=== PATIENT | male | born 1970 | race Caucasian/White ===

== ENCOUNTER 2019-09-18 12:05 | Outpatient (CLI) | payer OTHER, SELFPAY ==
--- NOTE | ~2019-09-18 | XR_ITS ---
EXAMINATION: XR cervical spine 4-5V EXAM DATE: 09/18/2019 12:51 INDICATION: C3 fracture. Neck pain. TECHNIQUE: Cervical spine frontal, lateral, lateral swimmers, and open-mouth odontoid projections. C omparison is made to prior examination from 01/18/2004. FINDINGS: There is moderate loss of the C5-6 and 6-7 disc heights. The vertebral bodies are aligned in the AP dimension. There is mild cervical arthropathy. The odontoid process is intact. The lateral masses of C1 line up with C2. There are no acute fractures identified. Prevertebral soft tissue and pre-dens space are within normal limits. IMPRESSION: 1. Moderate C5-7 disc disease. 2. Mild arthropathy. Reviewed, dictated and finalized at location A. LLOFACIAL PROSTHODONTIST
== END 2019-09-18 12:06 | disposition home or self-care (01) ==
LOC: ANHIMG 12:14
PROVIDERS: PCP Family Medicine; Visit Provider Family Medicine
DX: M50.322 Other cervical disc degeneration at C5-C6 level (principal); M50.323 Other cervical disc degeneration at C6-C7 level
CPT/HCPCS: 72050

== ENCOUNTER 2020-04-15 15:57 | Inpatient (IN) | payer OTHER, SELFPAY ==
[2020-04-15] VITALS (7 sets, daily range): BP systolic 107–180; BP diastolic 60–90; PULSE 83–95; RESP 16–22; TEMP 36.3–36.7; O2SAT 94–100; BMI 52.7
--- NOTE | ~2020-04-15 | US_ITS ---
EXAMINATION: US paracentesis abd w/image DATE: 04/18/2020 10:30 INDICATION: Ascites. TECHNIQUE: The procedure and its risks, benefits, and alternatives were discussed with the patient. P otential risks discussed included bleeding and infection. The skin was prepped and draped in sterile fashion. 1% lidocaine was used for local anesthesia. Under ultrasound guidance, a 5 Fr catheter with trochar was advanced into the ascites in the left lower quadrant. Fluid was aspirated. The catheter w as removed, and a dressing was applied. There were no immediate complications. FINDINGS: Ultrasound images demonstrate ascites and the catheter within the fluid. IMPRESSION: 1. Successful ultrasound-guided paracentesis yielding 5000 mL of dark red, opaque fluid. Reviewed, dictated and finalized at location A. IMPRESSION: 1. Successful ultrasound-guided paracentesis yielding 5000 mL of dark red, opa que fluid.
--- NOTE | ~2020-04-15 | US_ITS ---
US paracentesis abd w/image DATE: 04/15/2020 19:06 INDICATION: Ascites TECHNIQUE: The purpose of the procedure, technique and potential locations were discussed with the romina goddard. The patient verbalized understanding and gave consent. Timeout procedure confirmed proper patient and procedure. Sonographic imaging was utilized to find an appropriate site for percutaneous access at the left lowe r quadrant of the abdomen. The skin was prepared with sterile solution and sterile drape. 1% Lidoca ine was administered to the skin and underlying subcutaneous tissues. A single stick percutaneous catheter was advanced into the peritoneal catheter uneventfully. Dark red ascites was obtained. The drainage was stopped temporarily pending review of prior paracent esis reports that also revealed bloody ascites, as well as telephone conference with ER physician Dr. Gaming. The CT abdomen pelvis was reviewed as well to confirm ascites density of 16 to 19 H.U. 4.1 liters fluid was drained without apparent difficulty or complication. I advised Dr. Gaming to consider monitoring of vital signs for an appropriate period post-procedur e. IMPRESSION: 4.1 liters dark red ascites drained by ultrasound guided paracentesis Reviewed, dictated and finalized at Location A. Reviewed, dictated and finalized at location A. IMPRESSION: 4.1 liters dark red ascites drained by ultrasound guided paracentes is
--- NOTE | ~2020-04-15 | US_ITS ---
EXAMINATION: US abdomen limited DATE: 04/17/2020 15:08 INDICATION: Ascites. TECHNIQUE: Multiple grayscale ultrasound images of the abdomen were obtained. COMPARISON: Ultrasound 04/15/2020, CT abdomen and pelvis 04/15/2020 FINDINGS: A survey of the abdomen demonstrates a large volume of ascites. IMPRESSION: 1. Large volume of ascites. Reviewed, dictated and finalized at location A. IMPRESSION: 1. Large volume of ascites.
--- NOTE | ~2020-04-15 | XR_ITS ---
XR chest 1V portable DATE: 04/15/2020 21:51 INDICATION: Shortness of breath. History of COPD, smoking TECHNIQUE: 2 portable upright AP views on 04/15/2020 at 2142 hours COMPARISON: 02/25/2019 PA and lateral chest FINDINGS: Heart size appears within normal range. No pulmonary infiltrate or consolidation, pleural e ffusion or pulmonary vascular congestion or pneumothorax is detected. IMPRESSION: No active cardiopulmonary disease Reviewed, dictated and finalized at location A.
--- NOTE | ~2020-04-15 | CT_ITS ---
EXAMINATION: CT abdomen pelvis w con DATE: 04/15/2020 17:12 INDICATION: Abdominal pain and distention TECHNIQUE: Computed tomography (CT) of the abdomen and pelvis was performed with 100 cc Omnipaque 350 intravenous contrast. Automated exposure control and iterative reconstruction technique were employe d. Exam dose: 1875.30 mGy-cm total exam DLP. COMPARISON: 10/27/2018 CT abdomen 11/26/2008 CT renal scan FINDINGS: Bilateral gynecomastia. Heart size is normal. Coronary artery calcifications. No pericardial or pleural effusion. Old rib fractures. Mild atelectasis or discoid scarring in the lower lungs. Surface nodularity of the liver consistent with cirrhosis. Splenomegaly; the spleen measures approxim ately 17.4 cm length. There are some left lateral splenic capsular calcifications. There are varices . There is a prominent amount of ascites with attenuation of the 16-19 Hounsfield unit range approxim ately.. No apparent focal hepatic space-occupying mass lesion is evident. No pancreatic mass lesion or calcif ication or pancreatic duct dilatation. The gallbladder is present. No bile duct dilatation. Approximately 2.4 x 2.9 cm right adrenal mass with some internal calcifications; this is stable in si ze since 10/27/2018. The adrenal glands are otherwise unremarkable. No renal mass lesion or urinary tr act calculus or hydroureteronephrosis is evident. Normal caliber and atherosclerotic calcification of the abdominal aorta and iliac arteries. There is an approximately 5.5 cm soft tissue mass with calcifications in the right pelvic area, which appears stable in size since 10/27/2018 but new since 11/26/2008. Differential diagnosis includes phe ochromocytoma, mucinous colon tumor or other primary or metastatic malignancy. Consider PET/CT scan for further evaluation. IMPRESSION: 5.5 cm soft tissue mass with calcifications in the right pelvic area, which appears stab le in size since 10/27/2018 but new since 11/26/2008. Differential diagnosis includes pheochromocytoma , mucinous colon tumor or other primary or metastatic malignancy. Consider PET/CT scan for further e valuation Stable 2.4 x 2.9 cm right adrenal soft tissue mass with calcifications Prominent ascites Cirrhosis, splenomegaly, varices Reviewed, dictated and finalized at Location A. Reviewed, dictated and finalized at location A. IMPRESSION: 5.5 cm soft tissue mass with calcifications in the right pelvic ar ea, which appears stable in size since 10/27/2018 but new since 11/26/2008. Diff erential diagnosis includes pheochromocytoma, mucinous colon tumor or other ludwin jenniffer or metastatic malignancy. Consider PET/CT scan for further evaluation Stable 2.4 x 2.9 cm right adrenal soft tissue mass with calcifications Prominent ascites Cirrhosis, splenomegaly, varices
--- NOTE | 2020-04-15 16:00 | ED.ABDPAIN ---
HPI - Abdominal Pain General Chief Complaint: Abdominal Pain Stated Complaint: abd pain Time Seen by Provider: 04/15/20 16:00 History of Present Illness HPI narrative: History limited by poor historian. 50 yo morbidly obese male with multiple medical problems including cirrhosis, DM, HTn presents to the ED c/o abdominal pain. He reports that he has chronic pain that has gotten worse over the past few day. It is located throughout the entire abdomen. It is associated with distension and nausea. He has required parcentesis and had peritonitis in the past. He had a recent admission to [facility] for similar complaints. He is not able to provide very much detail about that hospital stay. Related Data Home Medications Medication Instructions Recorded Confirmed carvedilol 6.25 mg PO BID 04/15/20 04/15/20 ciprofloxacin HCl 500 mg PO DAILY 04/15/20 04/15/20 folic acid 0.8 mg PO DAILY 04/15/20 04/15/20 gabapentin 600 mg PO DAILY 04/15/20 04/15/20 lactulose 20 g PO BID 04/15/20 04/15/20 trazodone 100 mg PO HS PRN 04/15/20 04/15/20 Allergies Allergy/AdvReac Type Severity Reaction Status Date / Time No Known Allergies Allergy Verified 02/25/19 14:19 Review of Systems Review of Systems: All systems reviewed & are unremarkable except as noted in HPI and below Constitutional: Constitutional: Denies fever(s) ENT: Denies dizziness Cardiovascular: Cardiovascular: Denies chest pain Respiratory: Respiratory: Reports dyspnea Gastrointestinal: Gastrointestinal: Reports abdominal pain, Reports bloating, Reports diarrhea and Reports nausea Genitourinary: Genitourinary: Denies hematuria and Denies dysuria Endocrine: Endocrine: Reports fatigue PMFSH Past Medical History Medical History Diabetes mellitus HCV (hepatitis C virus) History of thrombosis HTN (hypertension) with goal to be determined Surgical History Surgical History History of left knee replacement Family History Family History Father Diabetes mellitus Leukemia Other Diabetes mellitus Social History Social History Smoking packs per day: 1 Smoking cigarettes per day: 20.0 Years smoked: 30 Smoking pack-years: 30.00 Smoking status: Current every day smoker Alcohol intake: former Alcohol use details: Former alcoholic. Gender identity (if verbalized by the patient): Male Exam Const: General: no acute distress, alert and ill appearing chronically Nutritional Appearance: obese morbidly obese Orientation/consciousness: patient oriented x3 HENMT: Head: normal to inspection Resp: Effort & Inspection: normal respiratory effort Auscultation: clear to auscultation bilaterally Cardio: Rate: regular rate Rhythm: regular rhythm GI: Inspection: distended GI Palp: Yes Tenderness to palpation present (GI), No Guarding due to palpation present (GI) and No Rebound tenderness present Percussion: Yes dullness to percussion and Yes Fluid wave present Skin: General skin exam: normal color Neuro: General: patient oriented x3, moves all extremities, no focal motor deficits and CN's II-XI intact bilaterally Speech: normal speech Extrem: General: edema bilateral Course Vital Signs Vital signs: Vital Signs Temperature 36.3 C L 04/15/20 16:02 Pulse Rate 95 04/15/20 16:02 Respiratory Rate 18 04/15/20 16:02 Blood Pressure 180/90 H 04/15/20 16:02 Pulse Oximetry 99 04/15/20 16:02 Temperature 35.7 C L 04/18/20 14:00 Pulse Rate 74 04/18/20 14:00 Respiratory Rate 18 04/18/20 14:00 Blood Pressure 119/60 04/18/20 14:00 Pulse Oximetry 97 04/18/20 14:00 MDM - Abdominal Pain MDM Narrative Medical decision making narrative: He had a large volume of ascites with abdominal pain. Given the history of p
[2020-04-15 16:17] LABS: Basophils Absolute Auto 0.1 K/mm3 (0.0-0.1); Basophils Percent Auto 0.5 % (0.2-1.2); Eosinophils Absolute Auto 0.1 K/mm3 (0-0.3); Hematocrit 30.7 % (42.0-52.0); Immature Granulocyte Absolute 0.07 K/mm3 (0.00-0.031); Immature Granulocyte Percent A 0.7 % (0-0.5); Lymphocytes Absolute Auto 0.49 K/mm3 (0.9-3.2); Lymphocytes Percent Auto 4.8 % (18.3-44.2); Mean Corpuscular HGB Conc 32.6 g/dl (32-36); Mean Corpuscular Hemoglobin 33.4 pg (26-34); Mean Corpuscular Volume 102.7 fl (80-100); Mean Platelet Volume 10.2 fl (7.4-10.4); Monocytes Percent Auto 9.4 % (2.6-8.5); Neutrophils Absolute Auto 8.5 K/mm3 (1.3-6.7); Neutrophils Percent Auto 83.6 % (45.5-73.1); Platelet Count Result 156 k/mm3 (150-375); Red Blood Count 2.99 M/mm3 (4.6-6.20); Red Cell Distribution Width 15.9 % (11.5-14.5); White Blood Count 10.2 K/mm3 (4.5-10.0)
--- NOTE | 2020-04-15 16:30 | PC.NURSE ---
PT INFORMED OF NEED FOR UA, REFUSING CATH, ASKING FOR WATER, PT INFORMED HE CANNOT HAVE ANY FLUIDS UNTIL HIS RESULTS COME BACK. STATES HE WILL ATTEMPT IN A BIT.
[2020-04-15 16:31] LABS: Alanine Aminotransferase 17 U/L (4-50); Albumin Level 3.8 g/dL (3.5-5.1); Alkaline Phosphatase 72 U/L (38-126); Anion Gap 3 mmol/L (8-16); Aspartate Amino Transferase 21 U/L (17-59); Bilirubin,Total 0.8 mg/dL (0.2-1.3); Blood Urea Nitrogen 21 mg/dL (9-20); Calcium 8.5 mg/dL (8.4-10.2); Carbon Dioxide 32 mmol/L (22-30); Chloride 95 mmol/L (98-107); Estimated CRCL calculation 98 ml/min; Estimated Glomerular Filt Rate 54; Glucose 172 mg/dL (75-110); Lipase 150 U/L (23-300); Potassium 4.4 mmol/L (3.4-5.0); Sodium 130 mmol/L (137-145)
--- NOTE | 2020-04-15 16:45 | PC.NURSE ---
PT UNABLE TO GIVE UA AT THIS TIME, REFUSING CATH.
[2020-04-15] MEDS: MORPHINE SULFATE 4 MG/ML INJ IV PUSH ×2 (17:02→21:09)
--- NOTE | 2020-04-15 17:02 | PC.NURSE ---
PT TAKEN TO CT AT THIS TIME, AGAIN INFORMED OF NEED FOR URINE SAMPLE, STATES HE WILL ATTEMPT UPON RETURN.
--- NOTE | 2020-04-15 17:44 | PC.NURSE ---
SPOKE WITH JAVIER IN THE LAB ABOUT ADDING ON COAG STUDIES, VERBALIZED THAT SHE WOULD ADD THEM ON.
--- NOTE | 2020-04-15 17:44 | PC.NURSE ---
SPOKE WITH ULTRASOUND AT THIS TIME, STATES THEY ARE AWAITING COAG STUDIES TO COME BACK PRIOR TO TAKING PT FOR PARACENTESIS.
[2020-04-15 17:50] LABS: Add Urine Microscopic? NO; Appearance Urine Clear (Clear); Bilirubin Urine Negative (Negative); Blood Urine Negative (Negative); Color Urine Yellow (Yellow); Glucose Urine UA Negative (Negative); Ketones Urine Negative (Negative); Leukocyte Esterase Ur Negative LEU/UL (Negative); Nitrate Urine Negative (Negative); Protein Urine Negative (Negative); Specific Grav Ur 1.026 (1.001-1.035); Urobilinogen Urine Negative mg/dL (<2.0)
--- NOTE | 2020-04-15 17:54 | PC.NURSE ---
SPOKE WITH SEJAL NO ABOUT FEEDING PT, STATES THAT PT CAN HAVE JELLO AT THIS TIME, AND WE CAN SEE HOW HE DOES. PT PROVIDED JELLO.
[2020-04-15 17:58] LABS: INR 1.8; Prothrombin Time 20.1 Seconds (11.1-14.7)
[2020-04-15 17:59] LABS: Partial Thromboplastin Time 33.2 SECONDS (22.3-36.8)
--- NOTE | 2020-04-15 19:06 | PC.NURSE ---
REPORT TO LATONIA YEN AT THIS TIME, HE HAS ASSUMED PT CARE.
--- NOTE | 2020-04-15 19:25 | PC.NURSE ---
assumed care of patient at this time.
[2020-04-15 21:00] LABS: Appearance Peritoneal Fluid Bloody (Clear); Source Peritoneal Fluid Peritoneal Fluid
[2020-04-15 21:01] LABS: Color Peritoneal Fluid Red (Colorless); Nucleated Cells Peritoneal Flu 42 /uL (0-500); RBC Peritoneal Fluid 40341 /uL (0-100000)
[2020-04-15 21:04] LABS: Lymphocytes Peritoneal Fluid 27 %; Neutrophils Peritoneal Fluid 73 % (0-25)
--- NOTE | 2020-04-15 21:18 | PM.IMHP ---
H&P: HPI History of Present Illness Date/Time: 04/15/20 21:18 Chief complaint: Abdominal pain, suspect peritoniis Narrative: This is a 50 year old morbidly obese male with known history of cirrhosis secondary to HCV and chronic alcoholism who presented to the hospital with a complaint of diffuse abdominal pain, increased abdominal distension, and decreased urine output over the past 3 days. The patient was recently admitted at [facility] and discharged approximately 9 days ago but he cannot tell me exactly why he was hospitalized. His diuretics were decreased on his discharge and he was apparently told to drink large amounts of water? Today he denies any recent fevers, chills, cough, chest pain, palpitations, nausea, vomiting or rectal bleeding. He has had increased LE swelling and admits to one episode of diarrhea this morning. He has not drank alcohol since last year. He also reports that he was recently diagnosed as diabetic at [facility]. The patient was evaluated in the ER today and paracentesis was performed and the patient had 4 liters of fluid removed. A Weinberg catheter was placed and he immediately put out over 600 cc of urine. Zosyn IV was given by ER provider. Review of Systems Review of Systems: All systems reviewed & are unremarkable except as noted in HPI and below PMFSH Past Medical History Medical History (Updated 04/16/20 @ 05:13 by Faheem Mansfield MD) Diabetes mellitus HCV (hepatitis C virus) History of thrombosis HTN (hypertension) with goal to be determined Surgical History Surgical History History of left knee replacement Family History Family History Father Diabetes mellitus Leukemia Other Diabetes mellitus Social History Social History Smoking packs per day: 1 Smoking cigarettes per day: 20.0 Years smoked: 30 Smoking pack-years: 30.00 Smoking status: Current every day smoker Alcohol intake: former Alcohol use details: Former alcoholic. Gender identity (if verbalized by the patient): Male Meds Home Medications and Allergies Home Medications Medication Instructions Recorded Confirmed Type bumetanide 1 mg PO DAILY 04/15/20 04/15/20 History carvedilol 6.25 mg PO BID 04/15/20 04/15/20 History ciprofloxacin HCl 500 mg PO DAILY 04/15/20 04/15/20 History folic acid 0.8 mg PO DAILY 04/15/20 04/15/20 History gabapentin 600 mg PO DAILY 04/15/20 04/15/20 History hydrocodone-acetaminophen [Vicodin 1 tablet PO TID 04/15/20 04/15/20 History HP] lactulose 20 g PO BID 04/15/20 04/15/20 History spironolactone 50 mg PO DAILY 04/15/20 04/15/20 History trazodone 100 mg PO HS PRN 04/15/20 04/15/20 History warfarin 6 mg PO DAILY 04/15/20 04/15/20 History Allergies Allergy/AdvReac Type Severity Reaction Status Date / Time No Known Allergies Allergy Verified 02/25/19 14:19 Vital Signs Vital Signs - 24 hr 04/15/20 16:02 04/15/20 16:05 04/15/20 17:37 Temperature 36.3 C L Pulse Rate 95 90 87 Respiratory Rate 18 16 18 Blood Pressure 180/90 H 180/90 H 141/84 H Pulse Oximetry 99 98 97 04/15/20 19:43 04/15/20 20:52 Temperature Pulse Rate 85 95 Respiratory Rate 18 18 Blood Pressure 128/67 107/66 Pulse Oximetry 98 98 Exam Const: General: cooperative, no acute distress, alert, awake and ill appearing chronically Nutritional Appearance: obese morbidly obese Orientation/consciousness: patient oriented x3 HENMT: Head: normal to inspection General nose exam: Normal external nose present Face and sinus: normal facial exam Mouth: Yes Normal oral and palatal mucosa present and Yes oropharynx normal Eyes: Pupils: Equal, round and reactive pupils present EOM: EOMs intact bilaterally Neck: Neck: supple and no JVD Thyroid: thyroid normal Lymphatic: lymphadenopathy not noted Resp: Effort & I
--- NOTE | 2020-04-15 22:00 | ADMGEN ---
This patient, Dimitry Oh, was admitted to Medical Room 340-01. Patient/family oriented to hospital policies and general routines including ID bracelet, bed and alarms, visiting hours, pain management, procedures, bathroom and other care routines, personal items, smoking policy, room service/diet, and visiting hours. Valuables list has been completed. Information on how to activate the Rapid Response Team has been discussed. Patient/Family are encouraged to report perceived risks to care and to ask questions if they do not understand what they are told or what they should do.
[2020-04-15 22:42] LABS: Glucose Point of Care 124 (65-105)
[2020-04-16] VITALS (7 sets, daily range): BP systolic 106–152; BP diastolic 61–79; PULSE 78–87; RESP 16–22; TEMP 36.1–36.6; O2SAT 93–97
[2020-04-16] MEDS: carvediloL 6.25 MG TABLET PO ×3 (00:42→20:06)
[2020-04-16] MEDS: MORPHINE SULFATE 4 MG/ML INJ IV PUSH ×6 (00:48→20:19)
[2020-04-16 05:58] LABS: Basophils Percent Auto 0.4 % (0.2-1.2); Eosinophils Absolute Auto 0.1 K/mm3 (0-0.3); Eosinophils Percent Auto 1.2 % (0-4.4); Hematocrit 28.1 % (42.0-52.0); Hemoglobin 8.9 g/dL (14.0-18.0); Immature Granulocyte Absolute 0.05 K/mm3 (0.00-0.031); Immature Granulocyte Percent A 0.7 % (0-0.5); Lymphocytes Absolute Auto 0.42 K/mm3 (0.9-3.2); Lymphocytes Percent Auto 6.2 % (18.3-44.2); Mean Corpuscular HGB Conc 31.7 g/dl (32-36); Mean Corpuscular Hemoglobin 32.7 pg (26-34); Mean Corpuscular Volume 103.3 fl (80-100); Mean Platelet Volume 10.3 fl (7.4-10.4); Monocytes Absolute Auto 0.6 K/mm3 (0.1-0.6); Monocytes Percent Auto 9.3 % (2.6-8.5); Neutrophils Absolute Auto 5.6 K/mm3 (1.3-6.7); Neutrophils Percent Auto 82.2 % (45.5-73.1); Platelet Count Result 138 k/mm3 (150-375); Red Blood Count 2.72 M/mm3 (4.6-6.20); Red Cell Distribution Width 15.8 % (11.5-14.5); White Blood Count 6.8 K/mm3 (4.5-10.0)
[2020-04-16 06:09] LABS: INR 1.8; Prothrombin Time 20.2 Seconds (11.1-14.7)
[2020-04-16 06:16] LABS: Anion Gap 3 mmol/L (8-16); Blood Urea Nitrogen 18 mg/dL (9-20); Calcium 8.2 mg/dL (8.4-10.2); Carbon Dioxide 31 mmol/L (22-30); Chloride 98 mmol/L (98-107); Estimated CRCL calculation 106 ml/min; Estimated Glomerular Filt Rate 59; Glucose 129 mg/dL (75-110); Magnesium 2.2 mg/dL (1.6-2.3); Potassium 4.2 mmol/L (3.4-5.0); Sodium 132 mmol/L (137-145)
[2020-04-16 07:56] LABS: Glucose Point of Care 131 (65-105)
[2020-04-16] MEDS: BUMETANIDE 1 MG TABLET PO (09:01)
[2020-04-16] MEDS: CIPROFLOXACIN 500 MG TAB PO (09:01)
[2020-04-16] MEDS: GABAPENTIN 300 MG CAPSULE 600 MG PO (09:01)
[2020-04-16] MEDS: FOLIC ACID 0.4 MG TABLET 0.8 MG PO (09:01)
[2020-04-16] MEDS: LACTULOSE 20 GM/30 ML UDC PO ×2 (09:01→17:19)
[2020-04-16] MEDS: SPIRONOLACTONE 50 MG TABLET PO (09:03)
[2020-04-16 09:19] LABS: Hemoglobin A1C 6.1 % (<5.7)
[2020-04-16 11:38] LABS: Glucose Point of Care 228 (65-105)
[2020-04-16] MEDS: INSULIN ASPART (*BKC) 100 UNITS/ML SUB-Q (11:55)
--- NOTE | 2020-04-16 13:09 | WPDURCON ---
Assessment and Plan Assessment and plan (1) Urinary retention: Code(s): R33.9 - Retention of urine, unspecified Status: Acute Assessment and Plan: Will start Tamsulosin and keep munoz in to monitor I&O for the duration of his hosptial stay. He should have a voiding trial prior to discharge and call office with outcome. BPH unlikely d/t young age, prostate wasn't significantly enlarged on CT, possible neurogenic bladder. Will determine further after voiding trial. Urology Consult Note HPI Date Seen: 04/16/20 Requesting Physician: Brynn Bosch PA-C Primary Care Provider: Rios Shaikh MD Consult Narrative Narrative: Diimtry Oh Jr. is a 50 year old male who presented to the ER for decreased Urine Output and increased bilateral lower extremity edema, as well as abdominal ascites. He has known history of alcoholism, but has not had a drink in over a year. He has been on diuretics for a year to assist in his edema/ascites. He denies any difficulty with urination prior to three days ago, but his PCP cut his diuretics in half and he has been having a hard time urinating for at least 3-5 days. He denies hematuria, fever, chills, nausea or vomiting, flank pain or dysuria. He is c/o lower back pain which is relieved with pain medication. A munoz catheter was placed in the ER and 600cc of urine was noted on return. His WBC is 6.8 and creatinine is 1.3, UA is clear. He did have 4 L of fluid removed from his abdomen in the ER yesterday. CT abdomen/pelvis shows a 5.5cm Right pelvic soft tissue mass cirrhosis, ascites and splenomegaly. Urologically it is negative for abnormal findings. Review of Systems Cardiovascular: Cardiovascular: Denies chest pain Respiratory: Respiratory: Reports dyspnea Gastrointestinal: Gastrointestinal: Reports abdominal pain, Denies diarrhea, Denies nausea and Denies vomiting Genitourinary: Genitourinary: Denies hematuria, Denies dysuria, Denies flank pain, Denies urinary frequency and Reports urinary hesitancy PMF Past Medical History Medical History Diabetes mellitus HCV (hepatitis C virus) History of thrombosis HTN (hypertension) with goal to be determined Surgical History Surgical History History of left knee replacement Family History Family History Father Diabetes mellitus Leukemia Other Diabetes mellitus Social History Social History Smoking packs per day: 1 Smoking cigarettes per day: 20.0 Years smoked: 30 Smoking pack-years: 30.00 Smoking status: Current every day smoker Alcohol intake: former Alcohol use details: Former alcoholic. Gender identity (if verbalized by the patient): Male Meds Home Medications and Allergies Home Medications Medication Instructions Recorded Confirmed Type bumetanide 1 mg PO DAILY 04/15/20 04/15/20 History carvedilol 6.25 mg PO BID 04/15/20 04/15/20 History ciprofloxacin HCl 500 mg PO DAILY 04/15/20 04/15/20 History folic acid 0.8 mg PO DAILY 04/15/20 04/15/20 History gabapentin 600 mg PO DAILY 04/15/20 04/15/20 History hydrocodone-acetaminophen [Vicodin 1 tablet PO TID 04/15/20 04/15/20 History HP] lactulose 20 g PO BID 04/15/20 04/15/20 History spironolactone 50 mg PO DAILY 04/15/20 04/15/20 History trazodone 100 mg PO HS PRN 04/15/20 04/15/20 History warfarin 6 mg PO DAILY 04/15/20 04/15/20 History Allergies Allergy/AdvReac Type Severity Reaction Status Date / Time No Known Allergies Allergy Verified 02/25/19 14:19 Vital Signs Vital Signs - 24 hr 04/15/20 16:02 04/15/20 16:05 04/15/20 17:37 Temperature 97.4 F L Pulse Rate 95 90 87 Respiratory Rate 18 16 18 Blood Pressure 180/90 H 180/90 H 141/84 H Pulse Oximetry 99 98 97 04/15/20 19:43 04/15/20
[2020-04-16] MEDS: TAMSULOSIN HCL 0.4 MG CAPSULE PO (13:32)
[2020-04-16 16:53] LABS: Glucose Point of Care 181 (65-105)
[2020-04-16] MEDS: WARFARIN (*PBKC) 3 MG TABLET 6 MG PO (17:19)
--- NOTE | 2020-04-16 17:25 | PM.IMPN ---
Progress Note: A&P Assessment and Plan (1) Abdominal pain: Qualifiers: Abdominal location: generalized Qualified Code(s): R10.84 - Generalized abdominal pain Code(s): R10.9 - Unspecified abdominal pain Status: Acute Assessment and Plan: Abdominal pain most likely secondary to acute abdominal distension from fluid accumulation from cirrhosis and adjustments to his diuretics recently. Admit for observation as the patient continues to have abdominal pain despite having a paracentesis today. Peritoneal fluid does not appear suspicious for SBP. No IV antibiotics are needed at this time. He still having some abdominal pain diffusely and required IV morphine with some improvement temporarily. Will continue working on diuresis and adjustments to his medications We will obtain his most recent hospitalization records from [facility] from 9 days ago as he was just admitted there with similar complaints. GI will be consulted for further evaluation and recommendations. Continue pain control as needed. GIs input is greatly appreciated. (2) Ascites: Qualifiers: Ascites type: other type Qualified Code(s): R18.8 - Other ascites Code(s): R18.8 - Other ascites Status: Acute Assessment and Plan: Acute on Chronic ascites secondary to cirrhosis s/p paracentesis w/ 4 liters of peritoneal fluid removed. Will increase spironolactone back to 100 mg b.i.d. and start IV Bumex 1 mg b.i.d. to help with removal of excess fluid accumulation. Will check weights daily and monitor renal function and electrolytes. GI was consulted for further evaluation. The patient will need to follow up at the liver clinic with his liver specialist at [facility] on discharge. Continue monitoring. (3) Urinary retention: Code(s): R33.9 - Retention of urine, unspecified Status: Acute Assessment and Plan: Weinberg catheter was placed in the ER. Urology evaluated the patient today and started him on Flomax and recommended a voiding trial prior to discharge. Continue monitoring patient's symptoms. (4) Cramps, extremity: Code(s): R25.2 - Cramp and spasm Status: Acute Assessment and Plan: Patient states the reason why [facility] decreased his diuretics was due to his severe cramping to his extremities. They decreased his spironolactone from 100 mg b.i.d. to 50 mg b.i.d. and Bumex 2 mg b.i.d. to 1 mg b.i.d. and the began having the weight gain and abdominal distension. He still reports some intermittent cramping but is not as serious at this time. Potassium is 4.2 today and magnesium is 2.2 which is within normal range Continue monitoring his electrolytes with diuretics. Continue monitoring patient's symptoms. (5) Abdominal mass: Qualifiers: Abdominal location: right upper quadrant Qualified Code(s): R19.01 - Right upper quadrant abdominal swelling, mass and lump Code(s): R19.00 - Intra-abdominal and pelvic swelling, mass and lump, unspecified site Status: Chronic Assessment and Plan: The patient is known to have had this abdominal mass since last year. Continue outpatient Heme/Onc recommendations for same. 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 Continue Warfarin PO. Check PT/INR/PTT daily. (7) HTN (hypertension) with goal to be determined: Code(s): I10 - Essential (primary) hypertension Status: Chronic Assessment and Plan: Continue Coreg. Monitor blood pressure. ____
[2020-04-16] MEDS: WARFARIN (*PBKC) 1 MG TABLET PO (18:28)
[2020-04-16 23:01] LABS: Glucose Point of Care 151 (65-105)
[2020-04-17] MEDS: MORPHINE SULFATE 4 MG/ML INJ IV PUSH ×7 (01:29→21:51)
[2020-04-17 04:24] VITALS: BP 137/80; PULSE 87; RESP 16; TEMP 36.1; O2SAT 93
[2020-04-17 06:10] LABS: Basophils Percent Auto 0.4 % (0.2-1.2); Eosinophils Absolute Auto 0.1 K/mm3 (0-0.3); Hematocrit 28.9 % (42.0-52.0); Immature Granulocyte Absolute 0.08 K/mm3 (0.00-0.031); Lymphocytes Absolute Auto 0.41 K/mm3 (0.9-3.2); Lymphocytes Percent Auto 5.1 % (18.3-44.2); Mean Corpuscular HGB Conc 31.1 g/dl (32-36); Mean Corpuscular Hemoglobin 32.7 pg (26-34); Mean Corpuscular Volume 105.1 fl (80-100); Mean Platelet Volume 10.4 fl (7.4-10.4); Monocytes Absolute Auto 0.7 K/mm3 (0.1-0.6); Monocytes Percent Auto 8.1 % (2.6-8.5); Neutrophils Absolute Auto 6.8 K/mm3 (1.3-6.7); Neutrophils Percent Auto 84.4 % (45.5-73.1); Platelet Count Result 139 k/mm3 (150-375); Red Blood Count 2.75 M/mm3 (4.6-6.20)
[2020-04-17 06:18] LABS: INR 1.6; Prothrombin Time 18.7 Seconds (11.1-14.7)
[2020-04-17 06:19] LABS: Partial Thromboplastin Time 29.5 SECONDS (22.3-36.8)
[2020-04-17 06:30] LABS: Potassium 4.8 mmol/L (3.4-5.0)
[2020-04-17 06:43] LABS: Alanine Aminotransferase 14 U/L (4-50); Albumin Level 3.1 g/dL (3.5-5.1); Alkaline Phosphatase 76 U/L (38-126); Anion Gap 3 mmol/L (8-16); Aspartate Amino Transferase 20 U/L (17-59); Bilirubin,Total 0.7 mg/dL (0.2-1.3); Blood Urea Nitrogen 17 mg/dL (9-20); Calcium 8.1 mg/dL (8.4-10.2); Carbon Dioxide 32 mmol/L (22-30); Chloride 101 mmol/L (98-107); Estimated CRCL calculation 106 ml/min; Estimated Glomerular Filt Rate 59; Glucose 148 mg/dL (75-110); Magnesium 2.3 mg/dL (1.6-2.3); Sodium 136 mmol/L (137-145)
[2020-04-17 07:48] LABS: Glucose Point of Care 135 (65-105)
[2020-04-17 08:38] VITALS: BP 154/78; PULSE 88; RESP 14; TEMP 36.8; O2SAT 91
[2020-04-17] MEDS: GABAPENTIN 300 MG CAPSULE 600 MG PO (08:41)
[2020-04-17] MEDS: BUMETANIDE INJ 1 MG/4 ML VIAL IV PUSH ×2 (08:41→17:12)
[2020-04-17 08:42] VITALS: PULSE 88
[2020-04-17] MEDS: LACTULOSE 20 GM/30 ML UDC PO ×2 (08:42→17:12)
[2020-04-17] MEDS: carvediloL 6.25 MG TABLET PO ×2 (08:42→20:30)
[2020-04-17] MEDS: CIPROFLOXACIN 500 MG TAB PO (08:42)
[2020-04-17] MEDS: FOLIC ACID 0.4 MG TABLET 0.8 MG PO (08:42)
[2020-04-17] MEDS: SPIRONOLACTONE 50 MG TABLET 100 MG PO ×2 (08:42→17:12)
--- NOTE | 2020-04-17 10:01 | WPDGICN ---
Assessment and Plan Assessment and plan (1) Cirrhosis: Code(s): K74.60 - Unspecified cirrhosis of liver Status: Acute Assessment and Plan: patient with a known history of cirrhosis followed at [facility]. this is felt to be secondary to history of hepatitis C which has now been treated. Also has a history of heavy alcohol intake in the past which he has discontinued. Plan is for continued supportive care. Alcohol avoidance encourage. Long-term follow-up at [facility] after discharge advised. (2) Ascites: Qualifiers: Ascites type: other type Qualified Code(s): R18.8 - Other ascites Code(s): R18.8 - Other ascites Status: Acute Assessment and Plan: Patient with ascites now status post paracentesis. This appears to have him contributed to improvement of his abdominal pressure-like pain. Plan is to continue diuretics dose will need to be adjusted. Close follow-up of electrolytes advised. Patient gives a history of cramping in arms felt to be secondary to electrolyte imbalance. This apparently necessitated change in his diuretic dose recently. He should remain on a low-salt diet. Recent paracentesis reveals no indication for SBP however traumatic tap described. Bloody return identified. The reason for this bloody tap is somewhat uncertain. Tumor markers such as alpha fetoprotein will be obtained. Repeat paracentesis at some point may be beneficial. (3) Abdominal mass: Qualifiers: Abdominal location: right upper quadrant Qualified Code(s): R19.01 - Right upper quadrant abdominal swelling, mass and lump Code(s): R19.00 - Intra-abdominal and pelvic swelling, mass and lump, unspecified site Status: Chronic Assessment and Plan: Abdominal mass noted on CT scan. This is concerning to the radiologist. He should follow up with Oncology for or opinion on this. PET scan is recommended by Radiology Service will leave this to the discretion of Oncology Service. 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 Need to watch patient closely for signs of GI bleeding. Continue with caution. GI Consult Note Consult date/time: 04/17/20 10:01 HPI: Dimitry Oh Jr. is a 50 year old male I am asked to see the patient because of cirrhosis and ascites. Patient has a prior history of hepatitis C and a long history of alcohol abuse. Was found to have cirrhosis and has been treated at [facility]. He apparently has undergone treatment for hepatitis C in this is reported to have been adequately treated. Patient reports abdominal pressure-like pain over the last several weeks. He recently was at [facility] and transferred to [facility]. At [facility] he reports his dose of diuretics was decreased. He states this had no impact on his abdominal discomfort. Because of ongoing abdominal discomfort he presented to [facility] and was admitted for further evaluation. Yesterday had abdominal paracentesis and he reports the pain has improved dramatically. There was no evidence for SBP by his peritoneal tap. Patient denies any fever. CT scan in emergency room suggests an abdominal mass. Patient reports has been present for some time is being monitored. Known of these old records are available for review. Patient has been on long-term anticoagulation because of a history of a superior mesenteric artery thrombosis. Review of Systems Review of Systems: All systems reviewed & are unremarkable except as noted in HPI and below PMFSH Past Medical History
[2020-04-17 11:47] LABS: Glucose Point of Care 212 (65-105)
[2020-04-17] MEDS: TAMSULOSIN HCL 0.4 MG CAPSULE PO (11:52)
[2020-04-17] MEDS: INSULIN ASPART (*BKC) 100 UNITS/ML SUB-Q (11:53)
[2020-04-17] MEDS: ENOXAPARIN 100 MG/ML SYRINGE 180 MG SUB-Q ×2 (11:54→20:30)
[2020-04-17 14:00] VITALS: BP 160/77; PULSE 81; RESP 16; TEMP 36.9; O2SAT 95
--- NOTE | 2020-04-17 14:50 | PM.IMPN ---
Progress Note: A&P Assessment and Plan (1) Abdominal pain: Qualifiers: Abdominal location: generalized Qualified Code(s): R10.84 - Generalized abdominal pain Code(s): R10.9 - Unspecified abdominal pain Status: Acute Assessment and Plan: Abdominal pain most likely secondary to acute abdominal distension from fluid accumulation from cirrhosis and adjustments to his diuretics recently. Admit for observation as the patient continues to have abdominal pain despite having a paracentesis today. Peritoneal fluid does not appear suspicious for SBP. No IV antibiotics are needed at this time. He still having some abdominal pain diffusely and required IV morphine with some improvement temporarily. Will continue working on diuresis and adjustments to his medications We will obtain his most recent hospitalization records from [facility] from 9 days ago as he was just admitted there with similar complaints. GI evaluated the patient and recommend continued supportive care. He recommends possible repeat paracentesis if necessary. Will order a repeat limited abdominal ultrasound to see how much ascites he has in his abdomen to see if he needs another paracentesis. His abdomen is very distended than 10 palpation. Continue pain control as needed. GIs input is greatly appreciated. (2) Ascites: Qualifiers: Ascites type: other type Qualified Code(s): R18.8 - Other ascites Code(s): R18.8 - Other ascites Status: Acute Assessment and Plan: Acute on Chronic ascites secondary to cirrhosis s/p paracentesis w/ 4 liters of peritoneal fluid removed. Continue spironolactone at 100 mg b.i.d. and start IV Bumex 1 mg b.i.d. to help with removal of excess fluid accumulation. Will check weights daily and monitor renal function and electrolytes. GI was consulted for further evaluation. The patient will need to follow up at the liver clinic with his liver specialist at [facility] on discharge. Continue monitoring. (3) Urinary retention: Code(s): R33.9 - Retention of urine, unspecified Status: Acute Assessment and Plan: Weinberg catheter was placed in the ER. Urology evaluated the patient and started him on Flomax. Patient does not like Weinberg catheter is uncomfortable so we will try a voiding trial at this time and removed the Weinberg catheter. Continue monitoring patient's symptoms. (4) Cramps, extremity: Code(s): R25.2 - Cramp and spasm Status: Acute Assessment and Plan: Patient states the reason why [facility] decreased his diuretics was due to his severe cramping to his extremities. They decreased his spironolactone from 100 mg b.i.d. to 50 mg b.i.d. and Bumex 2 mg b.i.d. to 1 mg b.i.d. and the began having the weight gain and abdominal distension. He still reports some intermittent cramping but is not as serious at this time. Potassium is 4.8 today and magnesium is 2.3 which is within normal range Continue monitoring his electrolytes with diuretics. Continue monitoring patient's symptoms. (5) Abdominal mass: Qualifiers: Abdominal location: right upper quadrant Qualified Code(s): R19.01 - Right upper quadrant abdominal swelling, mass and lump Code(s): R19.00 - Intra-abdominal and pelvic swelling, mass and lump, unspecified site Status: Chronic Assessment and Plan: The patient is known to have had this abdominal mass since last year. Continue outpatient Heme/Onc recommendations for same. (6) Chronic anticoagulation: Code(s): Z79.01 - [facility] (current) use of anticoagulants Status: Chronic Assessment and Plan: That patient is on Warfarin after suffering a superior mesenteric thrombosis in the pa
[2020-04-17 16:36] LABS: Glucose Point of Care 131 (65-105)
[2020-04-17] MEDS: WARFARIN (*PBKC) 2 MG TABLET PO (17:12)
[2020-04-17] MEDS: WARFARIN (*PBKC) 5 MG TABLET PO (17:12)
[2020-04-17 20:30] VITALS: PULSE 72
[2020-04-17 21:31] VITALS: BP 129/52; PULSE 79; RESP 16; TEMP 36.1; O2SAT 96
[2020-04-17 22:05] LABS: Glucose Point of Care 141 (65-105)
[2020-04-18 03:54] VITALS: BP 120/68; PULSE 82; RESP 16; TEMP 36.1; O2SAT 95
[2020-04-18] MEDS: MORPHINE SULFATE 4 MG/ML INJ IV PUSH ×3 (03:59→12:02)
[2020-04-18 06:41] LABS: Hematocrit 28.5 % (42.0-52.0); Hemoglobin 9.1 g/dL (14.0-18.0); Mean Corpuscular HGB Conc 31.9 g/dl (32-36); Mean Corpuscular Hemoglobin 32.9 pg (26-34); Mean Corpuscular Volume 102.9 fl (80-100); Mean Platelet Volume 10.6 fl (7.4-10.4); Platelet Count Result 147 k/mm3 (150-375); Red Blood Count 2.77 M/mm3 (4.6-6.20); Red Cell Distribution Width 15.6 % (11.5-14.5); White Blood Count 8.3 K/mm3 (4.5-10.0)
[2020-04-18 06:50] LABS: INR 1.6
[2020-04-18 07:01] LABS: Anion Gap 4 mmol/L (8-16); Blood Urea Nitrogen 19 mg/dL (9-20); Calcium 8.1 mg/dL (8.4-10.2); Carbon Dioxide 30 mmol/L (22-30); Chloride 97 mmol/L (98-107); Estimated CRCL calculation 106 ml/min; Estimated Glomerular Filt Rate 59; Glucose 131 mg/dL (75-110); Potassium 4.4 mmol/L (3.4-5.0); Sodium 131 mmol/L (137-145)
[2020-04-18 07:15] LABS: Magnesium 2.1 mg/dL (1.6-2.3)
--- NOTE | 2020-04-18 07:21 | WPDGIPROGNO ---
Progress Note: A&P Additional Plan Patient alert fairly comfortable this morning. He states the pain he presented with his now gone. Physical exam he is alert. Vital signs are stable. Abdomen is quite obese. But remains distended. Extremities with minimal Edema. Impression 1. Cirrhosis of the liver. felt to be secondary to a prior hepatitis C and alcohol abuse. 2. History of treated hepatitis C. 3. Ascites. Bloody tap was identified. Patient states this is been bloody on previous paracenteses. I cannot find ascitic fluid cytology. Agree with repeat paracentesis for cytology. Additionally culture protein LDH glucose g stain or encouraged. Continue 2 g sodium diet. Adjust diuretic dose. 4. Intra-abdominal soft tissue mass. Apparently has been there for at least a year. Will ask patient to follow up with Oncology apparently this is already been established at [facility]. After paracentesis consider discharge continue diuresis. Outpatient follow-up of electrolytes and daily weights encourage. 2 g sodium diet. Patient will follow with established hepatology service at [facility] Subjective Date/time seen: 04/18/20 07:21 Objective Data Vital Signs Vital Signs: Vital Signs - 24 hr 04/17/20 08:38 04/17/20 08:42 04/17/20 14:00 Temperature 98.2 F 98.4 F Pulse Rate 88 88 81 Respiratory Rate 14 16 Blood Pressure 154/78 H 160/77 H Pulse Oximetry 91 95 04/17/20 20:30 04/17/20 21:31 04/18/20 03:54 Temperature 97 F L 97 F L Pulse Rate 72 79 82 Respiratory Rate 16 16 Blood Pressure 129/52 L 120/68 Pulse Oximetry 96 95 Intake/Output Intake/Output: Intake & Output 04/15/20 04/16/20 04/17/20 04/18/20 23:59 23:59 23:59 23:59 Intake Total 50 480 3850 550 Output Total 4100 1300 2700 Balance -4050 -820 1150 550 Meds/Results Medications: Active Medications Generic Name Dose Route Start Last Admin Trade Name Freq PRN Reason Stop Dose Admin Acetaminophen 650 mg 04/15/20 21:40 Tylenol Tablet PO Q4H PRN Mild Pain (1-3) or Fever Bumetanide 1 mg 04/17/20 09:00 04/17/20 17:12 Bumex Inj IV PUSH 1 mg BID HEMANT Administration Carvedilol 6.25 mg 04/15/20 23:55 04/17/20 20:30 Coreg PO 6.25 mg Q12HR HEMANT Administration Ciprofloxacin 500 mg 04/16/20 09:00 04/17/20 08:42 Cipro Po PO 500 mg DAILY HEMANT Administration Dextrose 12.5 gm 04/15/20 21:39 Dextrose 50% Syringe IV PUSH PRN PRN Hypoglycemia Protocol Enoxaparin Sodium 180 mg 04/17/20 09:45 04/17/20 20:30 Lovenox SUB-Q 180 mg Q12HR HEMANT Administration Folic Acid 0.8 mg 04/16/20 09:00 04/17/20 08:42 Folic Acid PO 05/16/20 09:01 0.8 mg DAILY HEMANT Administration Gabapentin 600 mg 04/16/20 09:00 04/17/20 08:41 Neurontin PO 600 mg DAILY HEMANT Administration Glucagon 1 mg 04/15/20 21:39 Glucagon For Inj IM PRN PRN Hypoglycemia Protocol Glucose 15 gm 04/15/20 21:39 Glutose 15 PO PRN PRN Hypoglycemia Protocol Dextrose 1,000 mls @ 100 mls/hr 04/15/20 21:39 Dextrose 5% 1,000 Ml IVPB PRN PRN Hypoglycemia Protocol Insulin Aspart 3 - 6 units 04/16/20 08:00 04/17/20 17:10 Novolog SUB-Q Not Given TIDWM HEMANT Protocol Lactulose 20 gm 04/16/20 09:00 04/17/20 17:12 Lactulose PO 05/16/20 09:01 20 gm BID HEMANT Administration Morphine Sulfate 4 mg 04/15/20 20:58 04/18/20 03:59 Morphine Sulfate Inj IV PUSH 4 mg Q2H PRN Administration Pain Rated 7-10 Spironolactone 100 mg 04/17/20 09:00 04/17/20 17:12 Aldactone PO 100 mg BID HEMANT Administration Tamsulosin HCl 0.4 mg 04/16/20 14:00 04/17/20 11:52 Flomax PO 0.4 mg QAM HEMANT Administration Trazodone HCl 100 mg 04/15/20 23:53 Desyrel PO HS PRN Sleep Warfarin Sodium 5 mg 04/17/20 17:00 04/17/20 17:12 Coumadin PO 5 mg DAILY@1700 HEMANT Administration
--- NOTE | 2020-04-18 08:00 | PC.NURSE ---
Reported to Yvonne [employer] that pt had received Coumadin and lovenox last night. Yvonne stated she would let Dr. Hung know.
[2020-04-18 08:01] LABS: Glucose Point of Care 127 (65-105)
[2020-04-18] MEDS: LACTULOSE 20 GM/30 ML UDC PO (10:40)
[2020-04-18] MEDS: FOLIC ACID 0.4 MG TABLET 0.8 MG PO (10:41)
[2020-04-18] MEDS: GABAPENTIN 300 MG CAPSULE 600 MG PO (10:41)
[2020-04-18] MEDS: BUMETANIDE INJ 1 MG/4 ML VIAL IV PUSH (10:41)
[2020-04-18] MEDS: SPIRONOLACTONE 50 MG TABLET 100 MG PO (10:41)
[2020-04-18 10:42] VITALS: PULSE 80
[2020-04-18] MEDS: carvediloL 6.25 MG TABLET PO (10:42)
[2020-04-18] MEDS: CIPROFLOXACIN 500 MG TAB PO (10:42)
[2020-04-18] MEDS: TAMSULOSIN HCL 0.4 MG CAPSULE PO (10:42)
[2020-04-18 11:56] LABS: Glucose Point of Care 124 (65-105)
[2020-04-18 14:00] VITALS: BP 119/60; PULSE 74; RESP 18; TEMP 35.7; O2SAT 97
[2020-04-18 14:20] LABS: Hepatitis B Surface Antigen Negative (Negative)
[2020-04-18 14:45] LABS: HIV 1/2 Ab P24 Ag Result Negative (Negative); Hepatitis C Virus Antibody Reactive (Negative)
--- NOTE | 2020-04-18 15:30 | P.DS_ITS ---
DS: Admitting Diagnosis Admitting Diagnosis Admitting Diagnosis: Abdominal pain, suspect peritoniis DS: Discharge Diagnosis Discharge Diagnosis (1) Abdominal pain: Qualifiers: Abdominal location: generalized Qualified Code(s): R10.84 - Generalized abdominal pain Code(s): R10.9 - Unspecified abdominal pain Status: Acute Assessment and Plan: Abdominal pain most likely secondary to acute abdominal distension from fluid accumulation from cirrhosis and adjustments to his diuretics recently. Admit for observation as the patient continues to have abdominal pain despite having a paracentesis today. * Peritoneal fluid does not appear suspicious for SBP. No IV antibiotics are needed at this time. * He still having some abdominal pain diffusely but it is improved after paracentesis removed 5 L today. * GI evaluated the patient and recommend continued supportive care And ordered further paracentesis diagnostic testing to be completed today which is pending for another few days. Recommended following up with his telemarketing representative at [facility]. * Patient is feeling better today after paracentesis. He feels comfortable with discharge home to continue back on his Bumex 2 mg b.i.d. and spirono lactone 100 mg b.i.d. which he has been on for years. * We will check a BMP on Wednesday for further evaluation of renal function and electrolytes. * He has an appointment with primary care provider on Wednesday04/24/2020 which is already scheduled. * He reports he will call his telemarketing representative to get him in sooner since he was recently diagnosed from [facility] and now our hospital for further e valuation and management. (2) Ascites: Qualifiers: Ascites type: other type Qualified Code(s): R18.8 - Other ascites Code(s): R18.8 - Other ascites Status: Acute Assessment and Plan: Acute on Chronic ascites secondary to cirrhosis s/p paracentesis w/ 4 liters of peritoneal fluid removed. * Educated patient to check his weights daily and monitor his fluid intake * Will restart his medications, Bumex 2 mg b.i.d. and spironolactone 100 mg b.i.d. and have him follow-up with his telemarketing representative. (3) Urinary retention: Code(s): R33.9 - Retention of urine, unspecified Status: Acute Assessment and Plan: Weinberg catheter was placed in the ER. * Urology evaluated the patient and started him on Flomax. * Voiding trial was successful. * Will continue on Flomax daily and follow-up with urology as needed for further evaluation of urinary retention (4) Cramps, extremity: Code(s): R25.2 - Cramp and spasm Status: Acute Assessment and Plan: Patient states the reason why [facility] decreased his diuretics was due to his severe cramping to his extremities. They decreased his spironolactone from 100 mg b.i.d. to 50 mg b.i.d. and Bumex 2 mg b.i.d. to 1 mg b.i.d. and the began having the weight gain and abdominal distension. * He still reports some intermittent cramping but is not as serious at this time. * Potassium is 4.4 today and magnesium is 2.1 which is within normal range * Will recheck BMP and magnesium on Wednesday. (5) Abdominal mass: Qualifiers: Abdominal location: right upper quadrant Qualified Code(s): R19.01 - Right upper quadrant abdominal swelling, mass and lump Code(s): R19.00 - Intra-abdominal and pelvic swelling, mass and lump, unsp
--- NOTE | 2020-04-18 15:30 | PM.DS ---
DS: Admitting Diagnosis Admitting Diagnosis Admitting Diagnosis: Abdominal pain, suspect peritoniis DS: Discharge Diagnosis Discharge Diagnosis (1) Abdominal pain: Qualifiers: Abdominal location: generalized Qualified Code(s): R10.84 - Generalized abdominal pain Code(s): R10.9 - Unspecified abdominal pain Status: Acute Assessment and Plan: Abdominal pain most likely secondary to acute abdominal distension from fluid accumulation from cirrhosis and adjustments to his diuretics recently. Admit for observation as the patient continues to have abdominal pain despite having a paracentesis today. Peritoneal fluid does not appear suspicious for SBP. No IV antibiotics are needed at this time. He still having some abdominal pain diffusely but it is improved after paracentesis removed 5 L today. GI evaluated the patient and recommend continued supportive care And ordered further paracentesis diagnostic testing to be completed today which is pending for another few days. Recommended following up with his evaluation specialist at [facility]. Patient is feeling better today after paracentesis. He feels comfortable with discharge home to continue back on his Bumex 2 mg b.i.d. and spironolactone 100 mg b.i.d. which he has been on for years. We will check a BMP on Wednesday for further evaluation of renal function and electrolytes. He has an appointment with primary care provider on Wednesday04/24/2020 which is already scheduled. He reports he will call his evaluation specialist to get him in sooner since he was recently diagnosed from [facility] and now our hospital for further evaluation and management. (2) Ascites: Qualifiers: Ascites type: other type Qualified Code(s): R18.8 - Other ascites Code(s): R18.8 - Other ascites Status: Acute Assessment and Plan: Acute on Chronic ascites secondary to cirrhosis s/p paracentesis w/ 4 liters of peritoneal fluid removed. Educated patient to check his weights daily and monitor his fluid intake Will restart his medications, Bumex 2 mg b.i.d. and spironolactone 100 mg b.i.d. and have him follow-up with his evaluation specialist. (3) Urinary retention: Code(s): R33.9 - Retention of urine, unspecified Status: Acute Assessment and Plan: Weinberg catheter was placed in the ER. Urology evaluated the patient and started him on Flomax. Voiding trial was successful. Will continue on Flomax daily and follow-up with urology as needed for further evaluation of urinary retention (4) Cramps, extremity: Code(s): R25.2 - Cramp and spasm Status: Acute Assessment and Plan: Patient states the reason why [facility] decreased his diuretics was due to his severe cramping to his extremities. They decreased his spironolactone from 100 mg b.i.d. to 50 mg b.i.d. and Bumex 2 mg b.i.d. to 1 mg b.i.d. and the began having the weight gain and abdominal distension. He still reports some intermittent cramping but is not as serious at this time. Potassium is 4.4 today and magnesium is 2.1 which is within normal range Will recheck BMP and magnesium on Wednesday. (5) Abdominal mass: Qualifiers: Abdominal location: right upper quadrant Qualified Code(s): R19.01 - Right upper quadrant abdominal swelling, mass and lump Code(s): R19.00 - Intra-abdominal and pelvic swelling, mass and lump, unspecified site Status: Chronic Assessment and Plan: The patient is known to have had this abdominal mass since last year. Continue outpatient Heme/Onc for which she has been seeing a physician at [facility] (6) Chronic anticoagulation: Code(s): Z79.01 - [facility] (current) use of anticoagulants
--- NOTE | 2020-04-18 16:43 | PC.NURSE ---
Pt eating before he leaves for home but does not want blood sugar checked.
[2020-04-21 05:09] LABS: Glucose Peritoneal Fluid 49 mg/dL
[2020-04-23 17:29] LABS: Alpha Fetoprotein Tumor Marker 4.9 ng/mL (<6.1)
[2020-04-23 18:33] LABS: Hepatitis C RNA, Quant PCR <15 IU/mL
--- NOTE | 2020-04-25 14:30 | PC.NURSE ---
04/15 and 04/18 peritoneal fluid cx are negative.
--- NOTE | 2020-04-25 16:31 | PC.NURSE ---
Patient called with inquiries r/t glucose monitoring. Patient states that his glucose is 232 before meals and over 300 post meal. RN placed call to Dr. Sorto, as Brynn Peludat is not available. Per Dr. Sorto, encourage patient to eat well with carb counting and drink plenty of fluids. If glucose rises above 400 before meals, return to ER for evaluation. Patient has an appointment with his PCP on Thursday, April 30, 2020. Patient offered written material to be printed off, but refused at this time. RN added diabetic teaching to patient instructions in case he changes his mind.
== END 2020-04-18 17:06 | disposition home or self-care (01) | DRG 280 ==
LOC: ANHED 20:58 → ANH3MED 21:33
PROVIDERS: Internal Medicine Gastroenterology; Physician Assistant; Admitting Provider Family Medicine; Emergency Provider Emergency Medicine; PCP Family Medicine; Visit Provider Internal Medicine
DX: K70.31 Alcoholic cirrhosis of liver with ascites (principal); R33.9 Retention of urine, unspecified; E11.9 Type 2 diabetes mellitus without complications; R25.2 Cramp and spasm; R19.01 Right upper quadrant abdominal swelling, mass and lump; I10 Essential (primary) hypertension; G89.4 Chronic pain syndrome; F17.210 Nicotine dependence, cigarettes, uncomplicated; F10.20 Alcohol dependence, uncomplicated; E66.01 Morbid (severe) obesity due to excess calories; Z68.43 Body mass index [BMI] 50.0-59.9, adult; Z86.19 Personal history of other infectious and parasitic diseases; Z79.01 Long term (current) use of anticoagulants; Z96.652 Presence of left artificial knee joint
CPT/HCPCS: 36415; 49083; 71045; 74177; 76705; 80048; 80053; 81003; 82105; 82945; 83036; 83615; 83690; 83735; 84157; 85025; 85027; 85610; 85730; 86703; 86803; 87070; 87075; 87205; 87340; 87522; 88104; 88108; 88305; 89051; 96365; 96372; 96374; 96375; 96376; 99285; A9270; G0378; G0379; G0432; J1650; J1815; J2270; J2543; Q9967

== ENCOUNTER 2020-06-10 13:38 | Outpatient (CLI) | payer OTHER, SELFPAY ==
--- NOTE | ~2020-06-10 | CT_ITS ---
EXAMINATION: CT chest w con DATE: 06/10/2020 14:15 INDICATION: Solitary pulmonary nodule TECHNIQUE: Computed tomography (CT) of the chest was performed with 75 cc Omnipaque 350 intravenous c ontrast. The dose-length product was 900.70 mGy-cm. Automated exposure control and iterative reconstr uction technique were employed. COMPARISON: No prior studies for comparison. FINDINGS: No significant pleural or pericardial effusion. There are multiple collateral vessels in th e subcutaneous tissues. No significant lymphadenopathy. There is bilateral gynecomastia. Heart size n ormal. There is cirrhosis of the liver. There is splenomegaly. No endobronchial lesions. There is lef t lower lobe atelectasis. There are gallstones. There is a 2 mm groundglass nodule right upper lobe, image 25. There are calcified mediastinal lymph nodes, consistent with granulomatous disease. IMPRESSION: 1. 2 mm groundglass nodule right upper lobe, likely benign. Follow-up low dose CT chest in 12 months recommended. 2: Cirrhosis with splenomegaly. 3: Gynecomastia. 4: Cholelithiasis. Reviewed, dictated and finalized at location A.
[2020-06-10 14:06] LABS: Estimated Glomerular Filt Rate 59
== END 2020-06-10 13:39 | disposition home or self-care (01) ==
PROVIDERS: PCP Family Medicine; Visit Provider Family Medicine
DX: R91.1 Solitary pulmonary nodule (principal); R91.8 Other nonspecific abnormal finding of lung field; K74.60 Unspecified cirrhosis of liver; R16.1 Splenomegaly, not elsewhere classified; N62 Hypertrophy of breast; K80.20 Calculus of gallbladder without cholecystitis without obstruction
CPT/HCPCS: 71260; Q9967

== ENCOUNTER 2020-06-19 17:03 | Emergency (ER) | payer OTHER, SELFPAY ==
[2020-06-19 17:27] VITALS: BP 145/81; PULSE 96; RESP 20; TEMP 36.3; O2SAT 90
[2020-06-19 17:40] VITALS: BP 132/102; PULSE 96; RESP 12; TEMP 36.7; O2SAT 92
[2020-06-19 17:57] LABS: Hematocrit 37.8 % (42.0-52.0); Hemoglobin 11.4 g/dL (14.0-18.0); Mean Corpuscular HGB Conc 30.2 g/dl (32-36); Mean Corpuscular Hemoglobin 28.4 pg (26-34); Mean Platelet Volume 10.5 fl (7.4-10.4); Platelet Count Result 154 k/mm3 (150-375); Red Blood Count 4.02 M/mm3 (4.6-6.20); White Blood Count 6.7 K/mm3 (4.5-10.0)
[2020-06-19 17:59] LABS: Add Urine Microscopic? NO; Appearance Urine Clear (Clear); Bilirubin Urine Negative (Negative); Blood Urine Negative (Negative); Color Urine Straw (Yellow); Glucose Urine UA Negative (Negative); Ketones Urine Negative (Negative); Leukocyte Esterase Ur Negative LEU/UL (Negative); Nitrate Urine Negative (Negative); Protein Urine Negative (Negative); Specific Grav Ur 1.009 (1.001-1.035); Urobilinogen Urine Negative mg/dL (<2.0)
[2020-06-19 18:06] LABS: INR 3.3; Prothrombin Time 33.9 Seconds (11.1-14.7)
[2020-06-19 18:11] VITALS: BP 148/82; PULSE 90; RESP 20; O2SAT 94
[2020-06-19 18:25] LABS: Alanine Aminotransferase 14 U/L (4-50); Albumin Level 3.7 g/dL (3.5-5.1); Alkaline Phosphatase 69 U/L (38-126); Anion Gap 6.99999 mmol/L (8-16); Aspartate Amino Transferase 25 U/L (17-59); Bilirubin,Total 1.4 mg/dL (0.2-1.3); Blood Urea Nitrogen 24 mg/dL (9-20); Calcium 9.2 mg/dL (8.4-10.2); Carbon Dioxide > 40 mmol/L (22-30); Chloride 88 mmol/L (98-107); Estimated CRCL calculation 107 ml/min; Estimated Glomerular Filt Rate 59; Glucose 226 mg/dL (75-110); Lipase 128 U/L (23-300); Potassium 3.9 mmol/L (3.4-5.0); Sodium 135 mmol/L (137-145)
[2020-06-19 18:26] LABS: Band Neutrophils Percent 3 % (0-6); Eosinophils Absolute Manual 0.13 K/mm3 (0.02-0.5); Eosinophils Percent Manual 2 % (0-4); Lymphocytes Absolute Manual 0.46 K/mm3 (1.1-4.5); Monocytes Absolute Manual 0.53 K/mm3 (0.1-0.90); Monocytes Percent Manual 8 % (3-9); Neutrophils Absolute Manual 5.56 K/mm3 (1.3-6.7); Neutrophils Percent Manual 80 % (46-73); Platelet Estimate Adequate (Adequate); Total Cells Counted 100
[2020-06-19 18:27] LABS: Anisocytosis 3+ (NORMAL); Hypochromasia 1+ (NORMAL)
[2020-06-19 18:28] LABS: Polychromasia 1+ (NORMAL)
--- NOTE | 2020-06-19 18:30 | PC.NURSE ---
Consent obtained for paracentesis at bedside. EDP at bedside at this time.
[2020-06-19 18:46] VITALS: BP 147/71; PULSE 88; RESP 20; O2SAT 92
[2020-06-19] MEDS: fentaNYL CITRATE INJ (*CRX) 100 MCG/2 ML VIAL (18:48)
--- NOTE | 2020-06-19 19:05 | ED.ABDPAIN ---
HPI - Abdominal Pain General Chief Complaint: Abdominal Pain Stated Complaint: abd pain/bloating hx of cirrhosis Time Seen by Provider: 06/19/20 17:47 Source: patient History of Present Illness HPI narrative: 50-year-old male presents to emergency department for diffuse abdominal pain for the past few days. Patient has a history of liver cirrhosis, and feels that his abdomen is distended. He has had a paracentesis in the past. He has not taken anything for the pain. No nausea or vomiting. No chest pain or shortness of breath. Related Data Home Medications Medication Instructions Recorded Confirmed carvedilol 6.25 mg PO BID 04/15/20 04/15/20 ciprofloxacin HCl 500 mg PO DAILY 04/15/20 04/15/20 folic acid 0.8 mg PO DAILY 04/15/20 04/15/20 gabapentin 600 mg PO DAILY 04/15/20 04/15/20 lactulose 20 g PO BID 04/15/20 04/15/20 trazodone 100 mg PO HS PRN 04/15/20 04/15/20 Allergies Allergy/AdvReac Type Severity Reaction Status Date / Time No Known Allergies Allergy Verified 02/25/19 14:19 Review of Systems Review of Systems: Narrative: CONSTITUTIONAL: Denies fever, chills, or sweats. EYES: Denies visual changes, redness, or discharge. ENT: Denies rhinorrhea, congestion, sore throat, or otalgia. CARDIOVASCULAR: Denies chest pain, palpitations, or edema. RESPIRATORY: Denies cough or dyspnea. GASTROINTESTINAL: Reports diffuse abdominal pain GENITOURINARY: Denies dysuria or hematuria. SKIN: Denies rash or itching. MUSCULOSKELETAL: Denies back pain, joint pain, or myalgia. NEUROLOGIC: Denies headache, numbness, dizziness, or weakness. PSYCHIATRIC: Denies anxiety or depression. All systems reviewed & are unremarkable except as noted in HPI and below (ROS) [facility] Past Medical History Medical History (Updated 06/20/20 @ 00:00 by Background Daemon) Diabetes mellitus HCV (hepatitis C virus) History of thrombosis HTN (hypertension) with goal to be determined Surgical History Surgical History History of left knee replacement Family History Family History Father Diabetes mellitus Leukemia Other Diabetes mellitus Social History Social History Smoking packs per day: 1 Smoking cigarettes per day: 20.0 Years smoked: 30 Smoking pack-years: 30.00 Smoking status: Current every day smoker Alcohol intake: former Gender identity (if verbalized by the patient): Male Exam Narrative: Exam Narrative: GENERAL: Well-appearing, well-nourished, and in no acute distress. HEAD: Normocephalic, atraumatic. EYES: PERRLA and EOMI. ENT: Nares clear, no rhinorrhea or epistaxis. Mucous membranes moist. NECK: Supple. CHEST: Clear to auscultation. No respiratory distress. HEART: Regular rate and rhythm. No murmur heard. Normal peripheral pulses. ABDOMEN: Distended, fluid wave present EXTREMITIES: Normal range of motion. No edema. SKIN: Warm, dry, no rash. NEURO: No focal deficits. Alert and oriented x3. PSYCH: Normal mood and affect. Procedures Paracentesis Paracentesis #1: Paracentesis Date: 06/19/20 Time Out Performed: Yes Indication: possible spontaneous bacterial peritonitis Procedure: diagnostic paracentesis Location: RLQ Local Anesthetic: lidocaine 1% Bedside Ultrasound Used: yes, Ascites confirmed and location marked Preparation: 11 blade used to make mami in skin Amount of fluid obtained (mL): 5,000 Fluid: bloody and sent to lab for analysis Post Procedure Exam: awake, alert, normal BP, normal HR and normal SpO2 Patient Tolerated Procedure: well Complications: none Course Reevaluation(s) Reevaluation #1: 2100 -reevaluated patient, pain improved after paracentesis. Blood work unremarkable. Low suspicion for SBP at this time. Counseled patient to follow-up with his yas
[2020-06-19] MEDS: fentaNYL CITRATE INJ (*CRX) 100 MCG/2 ML VIAL 50 MCG IV PUSH (19:48)
[2020-06-19 20:20] LABS: Appearance Peritoneal Fluid Bloody (Clear); Source Peritoneal Fluid Peritoneal Fluid
[2020-06-19 20:21] LABS: Color Peritoneal Fluid Red (Colorless); Nucleated Cells Peritoneal Flu 415 /uL (0-500); RBC Peritoneal Fluid 14053 /uL (0-100000)
[2020-06-19 20:22] LABS: Lymphocytes Peritoneal Fluid 84 %; Macrophages Peritoneal Fluid 5 %; Monocytes Peritoneal Fluid 7 %; Neutrophils Peritoneal Fluid 4 % (0-25)
[2020-06-19] MEDS: fentaNYL CITRATE INJ (*CRX) 100 MCG/2 ML VIAL 25 MCG IV PUSH (21:24)
[2020-06-19 21:39] VITALS: BP 131/100; PULSE 88; RESP 19; O2SAT 96
== END 2020-06-19 21:41 | disposition home or self-care (01) ==
PROVIDERS: Emergency Provider Emergency Medicine; PCP Family Medicine
DX: R18.8 Other ascites (principal); R10.9 Unspecified abdominal pain; K74.60 Unspecified cirrhosis of liver; E11.9 Type 2 diabetes mellitus without complications; I10 Essential (primary) hypertension; F17.210 Nicotine dependence, cigarettes, uncomplicated; Z96.652 Presence of left artificial knee joint; Z79.01 Long term (current) use of anticoagulants
CPT/HCPCS: 36415; 80053; 81003; 83690; 84157; 85025; 85610; 87070; 87075; 87205; 89051; 96374; 96376; 99284; J3010